=== PATIENT | female | born 1980 ===

== ENCOUNTER 2017-06-15 11:40 | Emergency (ER) | payer OTHER ==
[2017-06-15 11:47] VITALS: BP 125/59
--- NOTE | 2017-06-15 12:16 | UC ---
Complaint Female HPI - HPI Summary HPI Summary: 36 yo female with dyuria/urgency frequency x 4 days vag d/c nausea no f/c no back pain has supra pubic pain - History Of Current Complaint Chief Complaint: UCGU Stated Complaint: URINARY ISSUE Time Seen by Provider: 06/15/17 12:13 Hx Obtained From: Patient Hx Last Menstrual Period: 06/04/17 Onset/Duration: Gradual Onset, Lasting Days Timing: Constant Severity Initially: Mild Severity Currently: Mild Pain Intensity: 3 Pain Scale Used: 0-10 Numeric Character: Dull, Burning Aggravating Factor(s): Urination Associated Signs And Symptoms: Positive: Vaginal Discharge, Nausea - Allergies/Home Medications Allergies/Adverse Reactions: Allergies Allergy/AdvReac Type Severity Reaction Status Date / Time Penicillins Allergy Unknown Verified 06/06/14 10:18 Reaction Details Home Medications: Home Medications NK [No Home Medications Reported] 06/15/17 [History Confirmed 06/15/17] PMH/Surg Hx/FS Hx/Imm Hx Previously Healthy: Yes - has seen urologist for frequent UTIs - Surgical History Surgical History: Yes Surgery Procedure, Year, and Place: pararectal fistula repair [id number] X3 surgeries. X2 - Family History Known Family History: Positive: None - Social History Alcohol Use: None Substance Use Type: None Smoking Status (MU): Never Smoked Tobacco Review of Systems Constitutional: Negative Skin: Negative Eyes: Negative ENT: Negative Respiratory: Negative Cardiovascular: Negative Gastrointestinal: Negative Genitourinary: Dysuria, Frequency, Urgency Motor: Negative Neurovascular: Negative Musculoskeletal: Negative Neurological: Negative Psychological: Negative All Other Systems Reviewed And Are Negative: Yes Physical Exam Triage Information Reviewed: Yes Appearance: Well-Appearing, No Pain Distress, Well-Nourished Vital Signs: Initial Vital Signs Temp 99 F 06/15/17 11:44 Pulse 76 06/15/17 11:44 Resp 18 06/15/17 11:44 BP 125/59 06/15/17 11:44 Pulse Ox 99 06/15/17 11:44 Vital Signs Reviewed: Yes Eyes: Positive: Conjunctiva Clear ENT: Positive: Hearing grossly normal. Negative: Nasal congestion, Nasal drainage, Trismus, Muffled/hoarse voice Neck: Positive: Supple, Nontender Respiratory: Positive: Lungs clear, Normal breath sounds, No respiratory distress Cardiovascular: Positive: RRR, No Murmur Abdomen Description: Negative: Nontender - slight suprapubic tendrness, No Organomegaly, CVA Tenderness (R), CVA Tenderness (L), Hepatomegaly, McBurney's Point Tenderness, Peritoneal Signs, Pulsatile Mass, Splenomegaly Musculoskeletal: Positive: ROM Intact, No Edema Neurological: Positive: Alert Psychological Exam: Normal Skin Exam: Normal Complaint Female Dx - Course Course Of Treatment: ext genitalia- no lesions, vaginal- scant brownish d/c, cx - no CMT, not inflammed, no adenexal tenderness - Differential Dx/Diagnosis Provider Diagnoses: Dysuria Discharge - Discharge Plan Condition: Stable Disposition: HOME
== END 2017-06-15 13:20 | disposition home or self-care (01) ==
LOC: UCEAST 11:40
DX: R30.0 Dysuria (principal); N89.8 Other specified noninflammatory disorders of vagina; R11.0 Nausea; Z32.02 Encounter for pregnancy test, result negative
CPT/HCPCS: 81003; 84702; 87086; 87480; 87491; 87510; 87591; 87661; 99202; G0463